=== PATIENT | female | born 1940 | race African-American/Black ===

== ENCOUNTER 2018-07-03 14:01 | Day surgery (SDC) | payer MEDICARE, OTHER ==
[~2018-07-03] VITALS: Ht 160 cm; Wt 54.1 kg
[~2018-07-03 14:01] MED LIST: ASPIRIN E.C. 8181 MG PO; B-121000 MCG PO; BRILINTA90 MG PO; CATAPRES-TTS 10.1 M1 TD; CIPRO 500MG TA500 MG PO; COLACE 100100 MG/CAP PO; CRESTOR 10MG10 MG PO; CYCLOCORT; DIOVAN 160MG160 MG PO; DIOVAN160 MG PO; FEMARA PO; FERROUS SU325 MG/TAB PO; FLAGYL 250250 MG/TAB PO; GLUCOPHAGE1000 MG PO; GLUCOTROL 5M5 MG/TAB PO; HCTZ 25MG TAB25 MG PO; HCTZ 25MG25 MG PO; IMDUR 60MG60 MG/TAB PO; LOPRESSOR 550 MG/TAB PO; MAG-OX 400400 MG/TAB PO; METAMUCIL1 PDR PO; METFORMIN HCL1000 MG PO; NASONEX SPRAY17 GM NS; NATURAL E400 IU PO; NITRO-DUR0.3 MG/PAT TD; NITROSTAT0.4 MG/TAB SL; PREMARIN .3MG0.3 MG PO; PRILOSEC 20MG20 MG PO; RANEXA 500MG T500 MG PO; REFRESH DRY EYE15 ML OP; SINGULAIR 110 MG/TAB PO; SINGULAIR10 MG PO; TOPROL XL 25MG25 MG PO; VITAMIN D 400400 IU PO; VITAMIN E 400 U4001 PO; XALATAN EYE DROPS OD; ZANTAC 150MG T150 MG PO
[2018-07-03 14:32] VITALS: BP 175/73; PULSE 87; TEMP 97.8
[2018-07-03] MEDS ORDERED: LOPRESSOR 225 MG/TAB PO (14:46)
[2018-07-03] MEDS ORDERED: PROTONIX20 MG PO (14:48)
[2018-07-03] MEDS ORDERED: NORVASC 10MG10 MG PO (14:52)
[2018-07-03] MEDS ORDERED: HCTZ 25MG TAB25 MG PO (14:53)
[2018-07-03] MEDS ORDERED: PLAVIX 75MG TAB75 MG PO (14:53)
[2018-07-03] MEDS ORDERED: VOLTAREN GEL 1%1 TU TP (14:54)
[2018-07-03 15:35] VITALS: BP 151/65; PULSE 78; TEMP 97.2
[2018-07-03 15:45] VITALS: BP 133/67; PULSE 74
[2018-07-03 16:00] VITALS: BP 135/71; PULSE 73
[2018-07-03 16:15] VITALS: BP 143/63; PULSE 72
== END 2018-07-03 16:50 | disposition home or self-care (01) ==
LOC: SDCO 14:01
DX: Z12.11 Encounter for screening for malignant neoplasm of colon (principal); R19.5 Other fecal abnormalities; D12.0 Benign neoplasm of cecum; K57.30 Diverticulosis of large intestine without perforation or abscess without bleeding; D64.9 Anemia, unspecified; I10 Essential (primary) hypertension; K58.1 Irritable bowel syndrome with constipation; F17.210 Nicotine dependence, cigarettes, uncomplicated; Z86.010 Personal history of colon polyps; Z88.1 Allergy status to other antibiotic agents; Z88.8 Allergy status to other drugs, medicaments and biological substances; Z88.3 Allergy status to other anti-infective agents; Z91.040 Latex allergy status; Z88.2 Allergy status to sulfonamides; Z79.02 Long term (current) use of antithrombotics/antiplatelets; Z79.82 Long term (current) use of aspirin; Z79.84 Long term (current) use of oral hypoglycemic drugs; Z90.710 Acquired absence of both cervix and uterus; Z90.49 Acquired absence of other specified parts of digestive tract
CPT/HCPCS: J2250; J2405; J3010; J7030

== ENCOUNTER → 2018-08-14 | Outpatient (CLI) | payer MEDICARE, OTHER ==
[~2018-08-14] MED LIST changes: +LOPRESSOR 225 MG/TAB PO; +NORVASC 10MG10 MG PO; +PLAVIX 75MG TAB75 MG PO; +PROTONIX20 MG PO; +VOLTAREN GEL 1%1 TU TP
--- NOTE | 2018-08-14 14:05 | NUR ---
Called to ct, pt received premedication for contrast allergy. Pt is complaining of throat, arm and chest pain. Denies shortness of breath. VS taken 112 20 180/60 100%. Pt states pain is "bad" and is unable to rate with a number. Dr Paulino into talk with pt. Pt states she has nitro at home. Dr Paulino wants pt to take a home nitro for pain. Pt sat on side of bed per Dr Paulino request. Pt was lying down previously on ct table. 1409 Pt given nitro from her own supply. Pt reports nitro is burning under her tongue. 1411 Pt reports chest pain is gone. Continues to have bilat arm pain and throat pain. Pt given sip of water and pt encouraged to next time take her blood pressure medications prior to coming in. VS 113 20 172/82 98%. 1420 Dr Paulino wants pt taken to holding area and monitored for 15 minutes. Pt reports she is feeling better. Pain continues in bilat arms and throat. 1424 Pt to nurses holding area. VS 105 20 177/79 94%. Pt reports no further chest pain or throat. Rates bilat arm pain at 2-3/10. Pt eating crackers. States she is feeling better. 1432 VS 102 20 171/78 100%. Denies pain at this time. Reports feeling better. 1435 Dr Paulino notified of pts VS and no further pain. States is ok to let her go. Pt runs into Dr Hall in the [address]. Talks with pt. Dr Hall requests to see her on Friday at the [place] office for follow up. Pt out to family. Pt denies complaints. Home with family.
== END ==
LOC: COL.RAD 08-13 11:00
DX: K57.90 Diverticulosis of intestine, part unspecified, without perforation or abscess without bleeding (principal); K59.00 Constipation, unspecified; K62.1 Rectal polyp; D36.9 Benign neoplasm, unspecified site; D64.9 Anemia, unspecified; K63.5 Polyp of colon; N28.1 Cyst of kidney, acquired; K76.89 Other specified diseases of liver; Z90.710 Acquired absence of both cervix and uterus; Z90.49 Acquired absence of other specified parts of digestive tract
CPT/HCPCS: Q9967

== ENCOUNTER → 2021-05-08 | Outpatient (CLI) | payer MEDICARE, OTHER ==
[~2021-05-08] MED LIST changes: +APRESOLINE 25MG25 MG PO; +CYCLOCORT TP; +LIPITOR 40MG TA40 MG PO; +METAMUCIL3.4 GM/DOS PO; +OMNICEF 300MG300 MG PO; +PEPCID 20MG TAB20 MG PO; +PROAIR HFA0.09 MG/AC IH; +TOPROL XL100 MG PO
[2021-05-08 18:05] LABS: COLLECTION METHOD CLEAN CATCH
[2021-05-08 18:15] LABS: PH 6 (5-8); SQUAMOUS EPITHELIAL None Seen /hpf; URINE APPEARANCE Clear; URINE BACTERIA None Seen /hpf; URINE BILIRUBIN Negative (NEGATIVE); URINE BLOOD Negative (NEGATIVE); URINE COLOR Yellow; URINE GLUCOSE 2+ (NEGATIVE); URINE KETONE Negative (NEGATIVE); URINE LEUKOCYTE ESTERASE Negative (NEGATIVE); URINE NITRATE Negative (NEGATIVE); URINE PROTEIN(semi-quant) 3+ (NEGATIVE); URINE UROBILINOGEN Negative (NEGATIVE)
== END ==
LOC: ZLAB.STJ 17:44
PROVIDERS: Family Medicine
DX: N39.0 Urinary tract infection, site not specified (principal)